=== PATIENT | female | born 1970 | race Caucasian/White ===

== ENCOUNTER → 2019-07-05 | Outpatient (CLI) | payer BC ==
[~2019-07-05] MED LIST: IOHEXOL 240 MG/ML 50ML VIAL. PO ONE; IOHEXOL 300 MG/ML 100ML VIAL. IV ONE
--- NOTE | 2019-07-05 11:31 | RAD ---
CT CHEST ABD PELVIS W/CONTRAST Indication: Cough, fatigue, weight gain Technique: Postcontrast CT imaging was performed of the chest, abdomen, pelvis, multiplanar reconstruction images submitted. Oral contrast was also given. One or more of the following individualized dose reduction techniques were utilized for this examination: 1. Automated exposure control 2. Adjustment of the mA and/or kV according to patient size 3. Use of iterative reconstruction technique. Comparison: Noncontrast CT abdomen pelvis exam May 07, 2015, no previous chest CT available CHEST: Findings: There is linear-appearing density of the lingula and left lower lobe such as seen image 39 series 3, likely atelectasis. There is left upper lobe bulla. There is small 0.2 cm right lower lobe nodule image 37 series 3. No significantly enlarged nodes are identified of the chest. There is no dependent or pericardial fluid, pneumothorax, or lobar infiltrate. Thoracic aortic caliber is within normal limits, no dissection flap. There is no abnormality of the visualized thyroid gland. Major airways are patent. There is mild thoracic dextroscoliosis. IMPRESSION: 1. There is a tiny right upper lobe pulmonary nodule, optional 12 month follow-up as per revised Fleischner guidelines, no additional follow-up needed if low risk factors for neoplasm. There is left base atelectasis. Abdomen pelvis FINDINGS: There is diffuse hepatic steatosis, progressed in interval. There is a 0.8 cm hyperdense/hyperenhancing lesion of the lateral left lobe of liver best seen sagittal image 43 series 10. Gallbladder is present without obvious intraluminal abnormality by CT. Both kidneys enhance, no hydronephrosis. There is a small 0.1 cm inferior right renal calculus. There is no adrenal nodularity. No focal abnormality is identified of the pancreas or spleen. Bowel is not dilated. There is no free fluid or free air. Normal caliber appendix is visualized without adjacent inflammatory change. There is very minimal fat in the left inguinal canal, no bowel. IMPRESSION: 1. There is no significant lymphadenopathy. There is hyperenhancing lesion of the left lobe of the liver, nonspecific and could be a hemangioma although more accurately characterized with MRI. There is diffuse hepatic steatosis, progressed since previous exam. 2. There is small nonobstructive right renal calculus. Electronically signed by: Ruben Amaro MD (07/05/2019 11:28 AM) [place] [id number]
== END ==
LOC: CT 09:02
PROVIDERS: ATTEND Internal Medicine Hematology & Oncology
DX: R91.1 Solitary pulmonary nodule (principal); J98.4 Other disorders of lung; R05 Cough; R53.81 Other malaise; R53.83 Other fatigue; R63.5 Abnormal weight gain
CPT/HCPCS: 71260; 74177; Q9966; Q9967

== ENCOUNTER → 2021-01-27 | Outpatient (CLI) | payer BC ==
--- NOTE | 2021-01-28 11:11 | SLEEP ---
DATE OF STUDY: 01/27/2021 HOME SLEEP STUDY The patient is 51 years old who weighs 168 pounds with a BMI of 27.1. The patient's Jordan score was 16. The patient underwent home sleep study performed at [facility]. Total recording time was 424 minutes. During the night study, the patient had 26 central apneas, 12 obstructive apneas, 6 mixed apneas and 69 hypopneas. The patient's AHI was 17.2 per hour. Nocturnal oximetry study revealed a mean oxygen saturation of 96% with a lowest of 86%. 14% time oxygen saturation remained less than 90%. Mean heart rate 66 beats per minute with a maximum of 104 beats per minute. IMPRESSION: 1. Moderate obstructive sleep apnea at an AHI of 17.2 per hour. 2. Nocturnal hypoxia secondary to obstructive sleep apnea. RECOMMENDATIONS: 1. The patient is clinically symptomatic. The patient would benefit from treatment of sleep apnea with CPAP. 2. Once the patient is optimally treated, then follow up in 4-6 weeks to assess compliance and to document clinical improvement. 3. Avoid WIDTH [employer]IPPER depressants. 4. Cautioned regarding driving until symptoms of sleep apnea resolve with the use of CPAP. ANA LAURA DR: Michelle TID: [id number] CC: ESTRELLA MANCUSO APRN
== END ==
LOC: RT 10:05
PROVIDERS: ATTEND Nurse Practitioner Family
DX: G47.33 Obstructive sleep apnea (adult) (pediatric) (principal); R53.83 Other fatigue
CPT/HCPCS: G0399